=== PATIENT | female | born 1940 ===

== ENCOUNTER 2021-12-23 22:52 | Inpatient (IN) | payer MEDICARE, SELFPAY ==
[2021-12-23 23:11] VITALS: BP 115/72; PULSE 76; RESP 16; TEMP 36.8; O2SAT 94
--- NOTE | 2021-12-23 23:11 | HPE_ITS ---
Date of service: 12/23/21 Time of Service: 22:11 Assessment and Plan Assessment and plan (1) Hip fracture: Status: Acute Assessment and plan: Apparent hip fracture, though I would note that we do not have film at this point, and there are no characteristic physical findings. Have asked for [facility] to send film and as mentioned have already spoken with Ortho. I would note that AF is apparently paroxysmal (by exam), but in any case is not on anticoagulants. Will have NPO in anticipation of OR in AM. History of Present Illness History of Present Illness Chief Complaint: hip fracture Narrative: 81 female had mechanical fall today (tripped in bathroom), landing on left side. No head trauma or LOC. Left hip pain noted. Seen [facility] and left hip fracture noted. No beds and transferred here for further management. [facility] spoke with Dr. Ramos, who also spoke directly with me, and he has accepted case. PMH of note for AF (on ASA, no anticoagulant), HTN.There is also report from [facility] of DM, migraine and anemia but on no treatment for such. Patient does add h/o GERD for which she takes PPI. Patient has received 0.4 Dilaudid and 4 Zofran. Denies pain at this time. Review of Systems Narrative: per HPI PFSH All Active Problems (Updated 12/23/21 @ 23:20 by Derrick Holm MD) Hip fracture (Acute) Social History Smoking risk assessment performed?: No Exam Narrative Exam Narrative: 115/62, 76, 36.8, 16, 94% RA. HEENT atraumatic; neck supple; lungs clear; heart RRR; abdomen soft and NT; extremities w/o edema, pulses 2+/=; no eversion or foreshortening noted LLE; neuro Ox3, lucid, moves all 4s
--- NOTE | 2021-12-23 23:15 | RT.EKG_ITS ---
APPROVED REPORT Exam: Resting ECG Reason for Exam: pre-op Patient Location: I HR:77 bpm ECG Measurements Heart Rate 77 AXIS FL 145 P 5 QRSd 91 QRS 3 QT 386 T 48 QTc 437 Conclusion Sinus rhythm...normal P axis, V-rate 50- 99 Borderline low voltage, extremity leads...all extremity leads <0.6mV
[2021-12-23 23:31] VITALS: BP 115/72; PULSE 76; RESP 16; TEMP 36.8; O2SAT 94
[2021-12-24] VITALS (9 sets, daily range): BP systolic 101–145; BP diastolic 40–99; PULSE 70–103; RESP 14–19; TEMP 36.4–37.5; O2SAT 92–97; BMI 27.4
--- NOTE | 2021-12-24 | DI.CT_ITS ---
Exam(s) CT LOWER EXTREMITY LT WO EXAM: CT LOWER EXTREMITY LT WO CLINICAL HISTORY: evaluate comminution/displacement of L FNF. TECHNIQUE: Imaging Protocol: Axial computed tomography images with coronal and sagittal reformatted images were created and reviewed. COMPARISON: CR XR HIP LT MIN 2V AND PELVIS from 12/23/2021 FINDINGS: Bones: There is an acute subcapital femoral neck fracture. There is mild impaction of the fracture. No significant displacement of the fracture is seen. Minimal comminution is seen with a single oss eous fragment anteriorly. The joint space is well maintained. No cellulitic or osteomyelitic change s are identified. There is no evidence of joint space narrowing or cystic degeneration seen. No lyti c or sclerotic lesions are identified. Soft Tissues: Diverticulosis is seen in the sigmoid colon. No evidence of diverticulitis. There holbrook s appear to be a very small fat containing left inguinal hernia. IMPRESSION: Acute subcapital left femoral neck fracture with mild impaction. There is minimal comminution with a single osseous fragment is seen anteriorly. RADIATION DOSE DELIVERED: 334.88mGy.cm Total DLP 334.88mGy.cm Total DLP DATA REPOSITORY: All CT scans at this facility are submitted to the National Radiology Data Registry (NRDR) Dose Index Registry (DIR) with the [employer] (ACR). RADIATION OPTIMIZATION: All CT scans at this facility use at least one of these dose optimization te chniques: automated exposure control; mA and/or kV adjustment per patient size (includes targeted exa ms where dose is matched to clinical indication); or iterative reconstruction.
[2021-12-24] MEDS: HYDROmorphone 2 MG/ML SYR 0.5 MG IVP ×2 (01:03→06:31)
[2021-12-24] MEDS: Lactated Ringers 1,000 ML 80 ML IV (01:15)
--- NOTE | 2021-12-24 05:36 | OCONE_ITS ---
History of Present Illness History of Present Illness Chief Complaint: Left Hip Pain Narrative: Zac is an 81-year-old who fell yesterday. She reports that she tripped over her foot landing on her right elbow and left side. She had immediate pain in the left hip. She thought she was unable to mobilize was unable to stand up. Therefore, EMS was called and she was taken to [facility]. She was diagnosed with a impacted femoral neck fracture left side. There is no bed availability and therefore I was called for consultation and possible transfer for her left hip. She was admitted to the hospital service overnight where she has been deemed a surgical candidate. She continues have pain the left hip. She has been tolerating pain with oral Tylenol. She denies numbness or tingling. She does report a previous fracture about her left ankle which has recovered well except for some residual weakness which she was about to see physical therapy for. Consults Consult date: 12/23/21 Requesting physician: Derrick Homl Consult Reason Left hip fracture Assessment and Plan Assessment and plan (1) Fracture of femoral neck, left, closed: Status: Acute Assessment and plan: Zac is an 81-year-old female who has a subcapital femoral neck fracture on the left side, [place] 1, which is stable. CT scan reinforces the findings from the x-ray that there is no significant displacement posteriorly and no comminution. There also no significant arthritic findings. Therefore, recomm end percutaneous cannulated screw fixation of the fracture. I did review this with her. This would stabilize the fracture to allow mobilization. There is a chance for malunion or nonunion or avascular necrosis of the femoral head. However, indications were that this should provide excellent results. After discussing this, she elects to proceed. All of her questions were answered. We will proceed this afternoon. She will remain n.p.o. Cefazolin for preoperative antibiotics. Tranexemic acid prior to surgery Review of Systems All systems reviewed & are unremarkable except as noted in HPI and below PFSH All Active Problems (Updated 12/24/21 @ 13:47 by Kel Ramos MD) Fracture of femoral neck, left, closed (Acute) Hip fracture (Acute) Medical History Anemia Atrial fibrillation Diabetes mellitus Hypertension Migraine headache Social History Smoking/Tobacco Use Status: Never Smoking risk assessment performed?: Yes Alcohol Intake: never Substance use type: does not use Do you feel safe at home: Yes Do you feel safe in your relationship?: No Additional Social history: Exam Narrative Exam Narrative: Resting in the hospital bed. No acute distress. Alert and orient x3. Head is normocephalic and atraumatic. Evaluation of the left leg shows no significant deformity. There is some mild pain to palpation about the proximal aspect left thigh. No breaks in the skin. No ecchymosis. No range of motion was attempted given the patient's reported history and the known x-rays. She has active extension and flexion of the great toe. Sensation intact light touch over the deep and superficial peroneal nerve and tibial nerve. Palpable DP PT pulse. Results Last Vital Signs Temp 36.8 C 12/23/21 23:31 Pulse 76 12/23/21 23:31 Resp 16 12/23/21 23:31 BP 115/72 12/23/21 23:31 Pulse Ox 94 12/23/21 23:31 Labs Result diagrams: 12/24/21 06:11 12/24/21 06:11 Imaging Imaging Studies: X-ray of the left hip demonstrates a subcapital femoral neck fracture. There appears to be some very minor lateral translation and some valgus impaction. No significant step-off or angulation on the lateral view. No other suspicious lesions. No significant arthritis. CT scan of the left hip also shows a subcapital femoral neck fracture with no comminution and no significant displacement. There is no significant angulation on the lateral, sagittal view. n no significant arthritic findings. No other suspicious lesions
[2021-12-24 06:20] LABS: HCT 34.8 % (36.0-46.0); HGB 11.6 g/dL (11.2-15.7); MCH 27.4 pg (27.0-33.0); MCHC 33.3 % (32.0-36.0); MCV 82 fL (80-95); MPV 9.8 fL (8.0-11.0); Platelet Count 243 10^3/uL (130-400); RBC 4.23 10^6/uL (3.93-5.22); RDW 13.7 % (11.7-14.6); RDW-SD 40.9 fL; WBC 7.04 10^3/uL (4.4-10.8)
[2021-12-24 06:32] LABS: Anion Gap 7.7 mmol/L (3-11); BUN 16 mg/dL (7-18); CO2 28.3 mmol/L (21.0-32.0); Chloride 105 mmol/L (98-107); Estimated GFR 52.95 (mL/min/1.73m2); Glucose 110 mg/dL (74-106); Prothrombin Time 9.9 sec (9.3-11.0); Sodium 141 mmol/L (136-145)
--- NOTE | 2021-12-24 07:08 | DI.VRAD_ITS ---
PROCEDURE INFORMATION: Exam: CT Left Lower Extremity Without Contrast, Hip Exam date and time: 12/24/2021 6:46 AM Age: 81 years old Clinical indication: Other: Evaluate comminution/displacement of L fnf TECHNIQUE: Imaging protocol: CT of the Left lower extremity without contrast was performed. Exam focused on the hip. Radiation optimization: All CT scans at this facility use at least one of these dose optimization techniques: automated exposure control; mA and/or kV adjustment per patient size (includes targeted exams where dose is matched to clinical indication); or iterative reconstruction. COMPARISON: No relevant prior studies available. FINDINGS: Bones/joints: The bones are diffusely demineralized. There is a mildly impacted, otherwise nondisplaced subcapital fracture of the left femoral neck without appreciable comminution. The left femoral head maintains spherical contour and is well seated. 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 At least a small left hip effusion is suspected. Soft tissues: No acute or suspicious abnormality. Sigmoid diverticulosis is incidentally noted. Small fat-containing left inguinal hernia. IMPRESSION: Left femoral neck fracture as described above. Dictated and Authenticated by: Missy Sylvester MD. Ordering:GLORIA Begum MD
--- NOTE | 2021-12-24 08:05 | ANES.PREOP_ITS ---
General Info Date of Service Date Performed: 12/24/21 Height: 5 ft 2 in Weight: 68.039 kg Body Mass Index (BMI): 27.4 Surgical Procedure: Operation Date: 12/24/21 14:40 Proposed Procedure Side Surgeon p Hip Cannulated Fx Left Kel Ramos MD Meds Allergies and Home Medications Allergies Allergy/AdvReac Type Severity Reaction Status Date / Time Penicillins AdvReac Skin Rash Unverified 12/24/21 08:25 Home Medication Medication Instructions Recorded aspirin 81 mg tablet 81 mg PO DAILY 12/24/21 Current Visit Medications: Current Medications Generic Name Dose Route Start Last Admin Trade Name Freq PRN Reason Stop Dose Admin Dimethicone/Zinc Oxide 0 gm 12/23/21 23:24 Pascual Protect Cream 142 Gm Tube TP PRN PRN Hydromorphone HCl 0.5 mg 12/23/21 23:24 12/24/21 06:31 Hydromorphone 2 Mg/Ml Syr IVP 0.5 mg Q4H PRN PRN Administration Ringer's Solution 1,000 mls @ 80 mls/hr 12/23/21 23:30 12/24/21 01:15 IV 80 mls/hr INFUSION NUSRAT Administration Cefazolin Sodium/Dextrose 2 gm in 50 mls @ 100 mls/hr 12/24/21 05:45 Ancef Duplex IVPB PREOP NUSRAT Tranexamic Acid 1,000 mg/ 60 mls @ 360 mls/hr 12/24/21 07:45 Sodium Chloride IVPB PREOP NUSRAT Melatonin 6 mg 12/24/21 01:23 Melatonin 3 Mg Tab PO HS PRN PRN Ondansetron HCl 4 mg 12/23/21 23:24 Ondansetron 4 Mg/2 Ml Vial IVP Q4H PRN PRN PFSH Active Problems Active Problems: Problem Status Onset Code Hip fracture S72.009A Medical History Medical History (Updated 12/24/21 @ 08:20 by Francisco Nichols) Anemia Atrial fibrillation Diabetes mellitus Hypertension Migraine headache Tobacco Smoking/Tobacco Use Status: Never Alcohol Alcohol Intake: never Substance Use Substance use type: does not use Vital Signs and Lab Results Vital Signs Most Recent Vital Signs in EMR: Most Recent Vital Signs Temp Pulse Resp BP Pulse Ox 37.5 C 75 17 101/60 92 12/24/21 07:28 12/24/21 07:28 12/24/21 07:28 12/24/21 07:28 12/24/21 07:28 Lab Results Result Diagrams: 12/24/21 06:11 12/24/21 06:11 Blood Type / Crossmatch: No Data to Display Complete Blood Count: White Blood Count 7.04 10^3/uL (4.4-10.8) 12/24/21 06:11 Red Blood Count 4.23 10^6/uL (3.93-5.22) 12/24/21 06:11 Hemoglobin 11.6 g/dL (11.2-15.7) 12/24/21 06:11 Hematocrit 34.8 % (36.0-46.0) L 12/24/21 06:11 Platelet Count 243 10^3/uL (130-400) 12/24/21 06:11 Complete Metabolic Panel: Sodium Level 141 mmol/L (136-145) 12/24/21 06:11 Potassium Level 4.0 mmol/L (3.5-5.1) 12/24/21 06:11 Chloride Level 105 mmol/L (98-107) 12/24/21 06:11 Carbon Dioxide Level 28.3 mmol/L (21.0-32.0) 12/24/21 06:11 Blood Urea Nitrogen 16 mg/dL (7-18) 12/24/21 06:11 Creatinine 1.0 mg/dL (0.55-1.02) 12/24/21 06:11 Estimated GFR/1.73 m2 52.95 (mL/min/1.73m2) 12/24/21 06:11 Calcium Level 8.0 mg/dL (8.5-10.1) L 12/24/21 06:11 Glucose Level 110 mg/dL (74-106) H 12/24/21 06:11 Liver Function Panel: No Data to Display Coagulation Panel: INR International Normalized Ratio 1.0 (0.9-1.1) 12/24/21 06:1 1 Prothrombin Time 9.9 sec (9.3-11.0) 12/24/21 06:11 Cardiac Panel: No Data to Display Arterial Blood Gas: No Data to Display Venous Blood Gas: No Data to Display Pancreas Panel: No Data to Display Thyroid Panel: No Data to Display Infectious Disease: No Data to Display Blood Cultures: No Data to Display Toxicology Panel: No Data to Display Anesthesia Assessment and Plan Anesthesia History Personal History: No History of Anesthesia Complications Family History: No Family History of Anesthesia Complications Exercise Tolerance Exercise Tolerance: Metabolic Equivalents>4 Pertinent Negatives Pertinent Negatives: No Symptoms of GERD, No Major Cardiovascular Symptoms or Complaints, No Major Pulmonary Symptoms or Complaints and No History of CVA/TIA Cardiac & Pulmonary Exam Cardiac Exam: Normal S1/S2 Heart Sounds Pulmonary Exam: Clear Bilateral Breath Sounds Implantable Cardiac Device Does patient have a Pacemaker or an ICD?: No Airway Exam Known Difficult Airway: No Mallampati Class: 2 Mouth Opening: Normal (> 3cm) Thyromental Distance: Greater than 3 cm Neck Range of Motion: Full ROM Neck Circumference: Normal Teeth Condition: Normal Dentition (one tooth missing) ASA Classification ASA Score: ASA 2 Emergency Case?: Yes NPO Status NPO Status: NPO Clears >2 hours, Solids >8 hours Anesthesia Plan Resuscitation Status: Full Code Anesthesia Technique: Spinal Anesthesia Airway Planned: Natural Airway Monitors Used: Standard Monitors Preoperative Comments:: 81 female had mechanical fall. PMH of note for AF (on ASA, no anticoagulant), HTN, DM, migraine, anemia, GERD (on PPI)
[2021-12-24] MEDS: ACETAMINOPHEN 1,000 MG/100 ML BTL 400 MG IVPB (08:43)
--- NOTE | 2021-12-24 12:16 | INITIAL_ITS ---
- If Service Date Differs Date of service: 12/24/21 Time of Service: 12:16 Care Management Initial Assess REASON FOR HOSPITALIZATION:: Hip Fracture PAST MEDICAL HISTORY/PAST SURGICAL HISTORY:: All Active Problems. Hip fracture (Acute). Medical History. Anemia, AFib, Diabetes Mellitus, hypertension, migraine headache PREVIOUS FUNCTIONAL STATUS/SOCIAL/FAMILY SUPPORTS:: ALMA was unable to meet with Zac, as she was in the OR most of the day. Per report, she lives in [place], and is a . She has two friends listed as contacts, but no current HIPAA. CURRENT FUNCTIONAL STATUS:: ALMA was unable to meet with Zac, as she was in the OR most of the day. There was no HIPAA, and no family listed on her chart. CM will attempt to meet with her tomorrow to discuss her plan. CM will continue to follow. ADVANCE DIRECTIVES:: None on file. Has patient been provided with info about the portal/API?: No Did the patient sign up for the portal?: No CODE STATUS:: Full Code INSURANCE COVERAGE / FINANCIAL ISSUES:: [facility] MCR replacement CURRENT HOME/COMMUNITY SERVICES/EQUIPMENT:: No known services or equipment. PRIMARY CARE PHYSICIAN:: Unknown POTENTIAL DISCHARGE NEEDS:: Evaluations for further needs, follow up appointments. PATIENT/FAMILY EDUCATION NEEDS:: Review discharge instructions and limitations, discussion of self care needs including ask me three. ANTICIPATED BARRIERS TO DISCHARGE:: None identified. TRANSPORTATION:: to be determined by disposition. PLAN:: Zac went to the OR today. She will work with PT to evaluate her needs post surgically. Her transport will be determined by her disposition. She will follow up with her PCP and discharge plan of care. CM will continue to follow.
[2021-12-24] MEDS: HYDROmorphone 2 MG/ML SYR 1 MG IVP ×2 (13:06→19:45)
[2021-12-24] MEDS: Normal Saline Flush 10 ML SYR (13:07)
--- NOTE | 2021-12-24 13:30 | DI.RAD_ITS ---
Exam(s) XR HIP LT IN OR EXAM: XR HIP LT IN OR CLINICAL HISTORY: LEFT HIP IN OR TECHNIQUE: 2D and realtime digital imaging was performed. CONTRAST MATERIAL: Refer to procedure report. COMPARISON: CR XR HIP LT MIN 2V AND PELVIS from 12/23/2021 FINDINGS: Fluoroscopy was provided for Dr. Ramos during the performance of a pinning of the left femoral fr acture. Please refer to the procedure report for complete details. Ka,r=16.54 mGy IMPRESSION: RADIATION DOSE DELIVERED:
--- NOTE | 2021-12-24 14:04 | W.PM.PROGNOT ---
Date of Service Date of service: 12/24/21 Time of Service: 13:05 Assessment and Plan Assessment and plan (1) Hip fracture: Status: Acute Assessment and plan: Post op day #1. Continue pain medication and PT (2) Fall: Status: Acute Assessment and plan: Discuss fall precatutions (3) DVT prophylaxis: Status: Acute Assessment and plan: Started on enoxaparin 40 mg SQ daily (4) Discharge planning issues: Status: Acute Assessment and plan: Pending orthopedic & PT recommendations; Lives alone; she thinks she will do well at home. Subjective Subjective Patient reports: no new complaints Interval history since last seen: Post op day #1. Reports nausea has resolved. She is eating well. She got up out of bed with PT. States pain is manageable and is 2/10.. Exam Narrative Exam Narrative: HEENT atraumatic; neck supple; lungs clear; heart RRR; abdomen soft and NT; extremities w/o edema, pulses 2+/=; no eversion or shortening noted LLE; neuro Ox3, lucid, moves all 4s, Objective Last Vital Signs Temp 37.5 C 12/24/21 07:28 Pulse 75 12/24/21 07:28 Resp 17 12/24/21 07:28 BP 101/60 12/24/21 07:28 Pulse Ox 92 12/24/21 07:28 Laboratory Results - last 24 hr 12/24/21 12/24/21 12/24/21 06:11 06:11 06:11 WBC 7.04 RBC 4.23 Hgb 11.6 Hct 34.8 L MCV 82 MCH 27.4 MCHC 33.3 RDW 13.7 Plt Count 243 MPV 9.8 PT 9.9 INR 1.0 Sodium 141 Potassium 4.0 Chloride 105 Carbon Dioxide 28.3 Anion Gap 7.7 BUN 16 Creatinine 1.0 Estimated GFR/1.73 m2 52.95 Glucose 110 H Calcium 8.0 L Reviewed Pertinent PMH: Yes
[2021-12-24] MEDS: ceFAZolin 2 GM/50 ML BAG IVPB (14:15)
--- NOTE | 2021-12-24 15:24 | W.ANESPOSTOP ---
Postoperative Evaluation Date, Time and Location Date Performed: 12/24/21 Time Performed: 15:25 Patient Location: PACU Vital Signs Most Recent Imported Vital Signs: Most Recent Vital Signs Temp Pulse Resp BP Pulse Ox 36.4 C L 82 15 120/40 L 95 12/24/21 15:05 12/24/21 15:05 12/24/21 15:05 12/24/21 15:05 12/24/21 15:05 Pain Score Most Recent Pain Score: Most Recent Pain Score Pain Level 0 12/24/21 15:05 Assessment Mental Status: Awake (Alert & Oriented to Patient Baseline) Airway and Respiratory Function: Patent airway with normal (patient baseline) respiratory exam Cardiovascular Function: Hemodynamically Stable Hydration Status: Adequately Hydrated Nausea & Vomiting: No Nausea or Vomiting Pain: Pt. Denies Any Pain Peripheral Nerve Block: Regional nerve block not resolved at time of post operative discharge (Spinal not resolved as is appropriate. Patient cleared to let spinal resolve on the floor. )
[2021-12-24] MEDS: Ondansetron 4 MG/2 ML VIAL IVP ×2 (15:56→22:34)
[2021-12-24] MEDS: Metoprolol CR 50 MG TABCR PO (19:39)
[2021-12-24] MEDS: Docusate Sodium 100 MG CAP PO (19:40)
--- NOTE | 2021-12-24 22:47 | ROE_ITS ---
Date of service: 12/24/21 Time of Service: 14:45 Operative Note Operative Note DATE OF PROCEDURE: 12/24/21 PRE-OP DIAGNOSIS: Left Hip Femoral Neck Fracture POST-OP DIAGNOSIS: same PROCEDURE: Cannulated Screw Fixation of Left Hip Fracture SURGEON: Kel Ramos DESIGN PRINTING MACHINE SET UP OPERATOR: Ursula Higgins ANESTHESIA TYPE: Spinal Refer to Anesthesia Record ESTIMATED BLOOD LOSS: 10 PATHOLOGY: none sent COMPLICATIONS: None Patient was transported to: PACU Patient's condition: stable Implants: 7.3mm cannulatd screws (#3) Indications: Zac is a 81 year old female who presented to the Emergency Department after a fall. X-rays confirmed the diagnosis of a left femoral neck fracture of the proximal femur. I reviewed the possible treatment options and given the fracture of the femur, I recommened operative fixation. I discussed the technical details of the surgery. I reviewed the risks such as bleeding, infection, pain, stiffness, malunion, nonunion, hardware prominence, hardware faiilure, malrotation, avascular necrosis, blood clot. Despite these risks, she agreed to proceed. Findings: There was a fracture of the proximal femur which was stabilized with three cannulated screws. Procedure Description: Zac was greeted in the preoperative area. Consent was previously reviewed and signed. Once in the operating room, anesthesia was administered. The patient was transferred to the fracture table in the supine position. She was positioned onto the perineal post. All bony prominences were well padded. A single dose of TXA, 1 gram, was then administered IV. Prophylactic antibiotics, Cefazolin 2 grams, was given for prophylactic antibiotics. A timeout was performed for safe surgery. The side leg was prepped with Chloraprep. A shower curtain drape was placed. Using fluoroscopy, the trajectory of the screws were identified. Using a percutaneous approach I then placed 1 guidewire from the 7.3 mm cannulated screw system through the skin and onto the lateral proximal femur. This was position inferiorly and posteriorly. Was advanced into the femoral neck. A lateral then used to appropriately position this guidewire in the posterior portion of the femoral neck and head. It was advanced into the femoral head. Repeat AP fluoroscopy confirmed appropriate position. I then continue to place 2 additional guidewires in a superior and posterior position as well as superior anterior position. Utilized the lateral view as well as AP view to guide these screw trajectories. Once these were in appropriate position the length of the screws were measured and the near cortex was opened. The most inferior screw was placed with a washer due to the bone being softer in this region. The 2 more superior screw was replaced without washers. They were tightened by hand with excellent compression superiorly. Inferior screw unfortunate did not have significant compression but was stable and therefore left in place. The wounds were thoroughly irrigated. 0.25% bupivacaine was injected throughout the wounds both deep and superficially. The wounds were closed with a buried subcuticular Monocryl. The wounds were dressed with a Mepilex silver dressing. At the end of the case, all counts were correct. Zac tolerated the procedure well without known complication and was taken to the PACU for recovery. Physical therapy will start post-operatively, weigh-bearing as tolerated with assistive devices. Anticoagulation will start within 12-24 hours. 3 doses of post-operative antibitiocis for prophylaxis will be administered.
[2021-12-24] MEDS: ceFAZolin 1 GM/50 ML BAG IVPB (23:39)
[2021-12-25] MEDS: Lactated Ringers 1,000 ML 80 ML IV ×2 (04:46→18:20)
[2021-12-25 06:30] LABS: Abs Immature Grans 0.03 10^3/uL (0.0-0.06); Absolute Basophil Count 0.02 10^3/uL (0.0-0.2); Absolute Lymphocyte Count 1.37 10^3/uL (1.2-3.4); Absolute Monocyte Count 0.61 10^3/uL (0.1-0.8); Absolute Neutrophil Count 6.95 10^3/uL (1.2-6.7); Basophils % 0.2; HCT 33.6 % (36.0-46.0); HGB 10.9 g/dL (11.2-15.7); Immature Grans % 0.3; Lymphocytes % 15.3; MCH 27.2 pg (27.0-33.0); MCHC 32.4 % (32.0-36.0); MCV 84 fL (80-95); MPV 9.8 fL (8.0-11.0); Monocytes % 6.8; Neutrophils % 77.4; Platelet Count 236 10^3/uL (130-400); RBC 4.01 10^6/uL (3.93-5.22); RDW 13.6 % (11.7-14.6); RDW-SD 41.3 fL; WBC 8.98 10^3/uL (4.4-10.8)
[2021-12-25 06:43] LABS: Anion Gap 9.2 mmol/L (3-11); BUN 12 mg/dL (7-18); CO2 26.8 mmol/L (21.0-32.0); Calcium 8.1 mg/dL (8.5-10.1); Chloride 105 mmol/L (98-107); Estimated GFR 52.95 (mL/min/1.73m2); Glucose 109 mg/dL (74-106); Potassium 4.3 mmol/L (3.5-5.1); Sodium 141 mmol/L (136-145)
[2021-12-25 07:35] VITALS: BP 113/72; PULSE 83; RESP 16; TEMP 37.9; O2SAT 92
[2021-12-25] MEDS: Sertraline 100 MG TAB PO (07:42)
[2021-12-25] MEDS: ceFAZolin 1 GM/50 ML BAG IVPB ×2 (07:42→16:03)
[2021-12-25] MEDS: HYDROmorphone 2 MG/ML SYR 1 MG IVP ×2 (07:42→16:03)
[2021-12-25] MEDS: Metoprolol CR 50 MG TABCR PO ×2 (07:42→20:12)
[2021-12-25] MEDS: Omeprazole 20 MG CAPCR PO (07:42)
[2021-12-25] MEDS: Normal Saline Flush 10 ML SYR ×2 (07:43→16:05)
--- NOTE | 2021-12-25 09:51 | PT.INIE ---
Date of service: 12/25/21 Time of Service: 09:51 PT Notes Visit Reasons: Hip Fracture Physical Therapy Inpatient Initial Evaluation Date: 12/25/2021 Referring Doctor: Kel Ramos MD PT Orders: PT CONSULT: S/p Ortho surgery. S/P screw fixation of left hip frx ? WBAT with assistive devices Precautions: Fall. Standard. WBAT on left LE with AD. Patient Profile/Admitting Diagnosis: Florencio Weiner is an 81-year-old female with left femoral neck fracture sustained from a fall and is status post cannulated screw fixation on postoperative day 1. PMHX: All Active Problems?(Updated 12/23/21 @ 23:20 by Derrick Holm MD) Hip fracture (Acute) Social History/Home Situation: Lives alone in a private home with 12 steps to enter with rails on both sides. Independent with all aspects of ADLs without an assistive device or adaptive equipment. Still drives. Retired high school tutor Equipment Owned/DME: FWW Subjective: Agreeable to PT consult. Reports 2/10 pain in left hip at rest and with movement. Denies headache, chest pain, and dizziness throughout session. Supine in bed. IV in right knee. Pinto catheter in place. Objective: General Observation: IV in right ureter. Pinto catheter in place. Mepilex Ag over surgical incision. Mental Status: Alert and oriented as to person, place, time, and purpose. Able to pay attention, focus, and respond appropriately. Pain: 2/10 in left hip Vital Signs: Within normal limits as closely monitored by nursing staff ROM: Right Upper Extremity: Shoulder Flexion WFL. Shoulder abduction WFL. Elbow flexion WFL. Wrist flexion WFL. Functional opening and closing of hand WFL. Left Upper Extremity: Shoulder Flexion WFL. Shoulder abduction WFL. Elbow flexion WFL. Wrist flexion WFL. Functional opening and closing of hand WFL. Right Lower Extremity: Hip flexion WFL. Hip abduction WFL. Knee flexion WFL. Ankle dorsiflexion WFL. Ankle plantarflexion WFL. Left Lower Extremity: Hip flexion lacks the last 25% of active range of motion. Hip abduction WFL. Knee flexion WFL. Ankle dorsiflexion WFL. Ankle plantarflexion WFL. Strength: Right Upper Extremity: Shoulder flexors 5/5. Shoulder abductors 5/5. Elbow flexors 5/5. Elbow extensors 5/5. Database Software Technician strong. Left Upper Extremity: Shoulder flexors 5/5. Shoulder abductors 5/5. Elbow flexors 5/5. Elbow extensors 5/5. Database Software Technician strong. Right Lower Extremity: Hip flexors 5/5. Hip abductors 5/5. Knee flexors 5/5. Knee extensors 5/5. Ankle dorsiflexors 5/5. Ankle plantarflexors 5/5. Left Lower Extremity: Hip flexors 3-/5. Hip abductors 4-/5. Knee flexors 5/5. Knee extensors 4-/5. Ankle dorsiflexors 5/5. Ankle plantarflexors 5/5. Bed Mobility/Transfers: Supine to sit with standby assist Sit to supine with minimal assist to left LE Sit to stand contact-guard assist Stand to sit standby assist Bed to reclining chair standby assist Reclining chair to bed standby assist Gait: Instructed patient with level surface ambulation of 100 feet requiring contact-guard assist. Richa decreased. Step-to gait pattern. Denies headache, chest pain, and dizziness. Did report fatigue at end of activity. No loss of balance. No shortness of breath. Balance: Static Sitting: Normal Dynamic Sitting: Normal Static Standing: Fair Dynamic Standing: Fair Special Tests: Mobility Limitations Standardized Measure [facility] 6 clicks Basic Mobility Inpatient Short Form: Raw Score: 17 CMS Score: 51% deficit Informed Consent/Education: Patient was instructed in purpose of PT consult and plan of care. Agreeable to proceed with established PT POC to achieve personal goals. Assessment: LE demonstrates functional mobility decline requiring the use of all mobility ADL performance and assistance of 1 for safety. Range of motion limitation in left hip due to pain and postoperative status. Patient presents with clinical signs and symptoms consistent with current/admitting diagnoses that have resulted to mobility limitations, gait instability, generalized weakness, and overall ADL decline as demonstrated by the following impairment level findings: 1. Decreased strength to left hip ajor muscle groups 2. Impaired sitting/standing balance 3. Impaired activity tolerance 4. Limitation of joint range of motion in left hip Impairments are contributing to the following functional limitations: 1. Decline in bed mobility skills 2. Decline in transfer skills 3. Difficulty with ambulation without assistive device and physical assistance 4. Increased completion time for mobility ADL performance 5. Increased risk for falls 6. Difficulty with managing steps alone safely Patient is assessed as a 24008 moderate based on the following: History: 81-year-old female with past medical history as indicated above Examination: Demonstrable impairment in strength, balance, and mobility level with underlying impairments and functional limitations as exhibited above as well as deficit score of 51% utilizin the [facility] Mobility Inpatient Short Form Presentation: Evolving Decision Makin moderate complexity Goals: Goals X1 week 1. Supine-Sit independent 2. Sit-Supine independent 3. Sit-Stand independent 4. Stand-Sit independent with FWW 5. Bed-Chair independent with FWW 6. Chair-Bed independent with FWW 7. Independent gait on level surface with use of FWW for at least 300 feet without report of pain nor dyspnea 8. Independent stair negotiation while holding onto B rails for at least 15 steps without report of pain nor dyspnea 9. Independent with home exercise program 10. Good static and dynamic standing balance/tolerance Plan of Care/Treatment Plan: 1-2x/day, 7 days/week x 1 week. Plan of care has been reviewed with the CLINICAL FIELD SPECIALIST providing the service under Physical Therapy direction. Initiate Physical Therapy intervention for pain management as needed, strengthening, bed mobility, transfers, gait, stairs, balance training, and use of assistive device. DISCHARGE RECOMMENDATIONS: [] Home with no services [] [X] Home with services. Home when medically cleared by hospitalist and orthopedic surgeon. Patient will benefit from home health PT services in order to progress mobility level using least restrictive assistive ambulatory device, assess home safety, identify additional equipment needs, and establish a functional maintenance program that will increase ability of patient to remain at home. [] Home with outpatient PT [] [] SNF for continued rehabilitation [] [] [facility] [] [] SNF versus LTC based on ability to participate and progress [] TREATMENT CODE/TIME: 9716 2 x 20 minutes, 9753 0 x 29 minutes beginning at 9:51 AM. Thank you for the opportunity to participate in the care of this patient. Denisha Espino PT, DPT, CLT [facility] [place], [place]
[2021-12-25] MEDS: Enoxaparin 40 MG/0.4 ML SYR SC (11:01)
--- NOTE | 2021-12-25 13:23 | CMPROGNOTE_ITS ---
- If Service Date Differs Date of service: 12/25/21 Time of Service: 13:23 Care Management Progress Note S/O: Zac was evaluated by PT who are recommending home PT upon discharge; referral faxed to [place] [facility]. CM continues to follow. A: 81 year old female admitted to [facility] 12/23/21 for Hip Fracture P: Anticipate Zac will discharge home with new orders for VNA PT through [place], she has a FWW at home. She will transport via private vehicle with a friend. CM continues to follow.
--- NOTE | 2021-12-25 13:23 | PDOC.CMPRO ---
- If Service Date Differs Date of service: 12/25/21 Time of Service: 13:23 Care Management Progress Note S/O: Zac was evaluated by PT who are recommending home PT upon discharge; referral faxed to [place] [facility]. CM continues to follow. A: 81 year old female admitted to [facility] 12/23/21 for Hip Fracture P: Anticipate Zac will discharge home with new orders for VNA PT through [place], she has a FWW at home. She will transport via private vehicle with a friend. CM continues to follow.
--- NOTE | 2021-12-25 15:02 | PGE_ITS ---
Date of Service Date of service: 12/25/21 Time of Service: 12:15 Assessment and Plan Assessment and plan (1) Fracture of femoral neck, left, closed: Status: Acute Assessment and plan: Zac is an 81-year-old status post cannulated screw fixation of left femoral neck fracture. She is doing well. I am in charge by the progress he is made already physical therapy. I encouraged her to continue to work diligently physical therapy. At this rate she may be able to return home with home health physical therapy. However, long-term study may also be required. We will see as the next few days and fold. Continue with anticoagulation, Aspirin 81 milligrams twice daily is sufficient. Subjective Subjective Interval history since last seen: Zac is post a day #1 status post cannulated screw fixation of a left femoral neck fracture. She does feel better. She still some soreness about the left hip but she was able to mobilize the physical therapy. She is able to move in the bed with much less pain. She denies any numbness or tingling. Her pain has been controlled. Exam Narrative Exam Narrative: Resting in the supine position in the hospital bed. Left lower extremity dressings clean dry and intact. No deformity of the left leg. She is able to tolerate internal and external rotation without pain. Sensation intact light touch over the deep and superficial peroneal nerve and tibial nerve. Intact ankle dorsiflexion, plantarflexion, great toe extension and flexion. Objective Last Vital Signs Temp 37.9 C H 12/25/21 07:35 Pulse 83 12/25/21 07:35 Resp 16 12/25/21 07:35 BP 113/72 12/25/21 07:35 Pulse Ox 92 12/25/21 07:35 Laboratory Results - last 24 hr 12/25/21 12/25/21 06:10 06:10 WBC 8.98 RBC 4.01 Hgb 10.9 L Hct 33.6 L MCV 84 MCH 27.2 MCHC 32.4 D RDW 13.6 Plt Count 236 MPV 9.8 Immature Gran % 0.3 Neutrophils % 77.4 Lymphocytes % 15.3 Monocytes % 6.8 Eosinophils % 0.0 Basophils % 0.2 Nucleated RBC % 0.0 Absolute Neutrophils 6.95 H Absolute Lymphocytes 1.37 Absolute Monocytes 0.61 Absolute Eosinophils 0.00 Absolute Basophils 0.02 Sodium 141 Potassium 4.3 Chloride 105 Carbon Dioxide 26.8 Anion Gap 9.2 BUN 12 Creatinine 1.0 Estimated GFR/1.73 m2 52.95 Glucose 109 H Calcium 8.1 L
--- NOTE | 2021-12-25 15:09 | PT.INTREAT ---
Date of service: 12/25/21 Time of Service: 14:35 PT Notes Visit Reasons: Hip Fracture Inpatient Physical Therapy Treatment Note [facility] Date: 12/25/2021 PRECAUTIONS: WBAT L, Fall, Activity as tolerated SUBJECTIVE: Zac is pleasant and agreeable to participating in PT. She states that it is important to her to get back on her feet and participate in PT so she can attend her grandson's wedding in [place] in two weeks. OBJECTIVE: PAIN: Patient c/o L hip discomfort due to stiffness BED MOBILITY/TRANSFERS Supine-sit: Min A of L LE Sit-supine: Min A of L LE Sit-stand: SBA with verbal cueing for safety Stand-sit: SBA with verbal cueing for safety GAIT Assistive Device: FWW Weight bearing: WBAT L Assist: SBA Distance: 50' x2 Deviation: Slow pacing, seated rest, L hip discomfort, step-to to step-through pattern, antalgic gait THEREX: Patient was instructed in a LE strengthening program, completed in a seated position, to include: ankle pumps, heel raises, LAQ, seated marches and hip abduction. Patient requires assist with hip abduction exercise due to discomfort and weakness. STAIRS: Up/down 3x4 and 2x6 using B rails and a step-to pattern with cueing for sequence and SBA for safety. ASSESSMENT: Patient tolerated the addition of stair training, requiring cueing for sequence and SBA for safety. She also requires cueing for FWW management during sit<>stand transfers. PLAN: Continue with stair training, as patient lives on second floor, as well as gait training and LE strengthening for improved mobility and activity tolerance. TREATMENT CODE/TIME: 32 minutes; 41094, 29129 (14:35)
[2021-12-25 15:32] VITALS: BP 124/70; PULSE 91; RESP 14; TEMP 37.3; O2SAT 93
[2021-12-25 20:11] VITALS: BP 125/69; PULSE 85; RESP 18; TEMP 37.2; O2SAT 92
[2021-12-26] MEDS: Lactated Ringers 1,000 ML 80 ML IV (05:27)
[2021-12-26 07:26] VITALS: BP 139/67; PULSE 85; RESP 20; TEMP 37.1; O2SAT 92
[2021-12-26] MEDS: Omeprazole 20 MG CAPCR PO (07:47)
[2021-12-26] MEDS: Sertraline 100 MG TAB PO (07:48)
[2021-12-26] MEDS: Enoxaparin 40 MG/0.4 ML SYR SC (07:48)
[2021-12-26] MEDS: Metoprolol CR 50 MG TABCR PO ×2 (07:48→20:42)
--- NOTE | 2021-12-26 09:46 | PDOC.CMPRO ---
- If Service Date Differs Date of service: 12/26/21 Time of Service: 09:47 Care Management Progress Note S/O: Zac continues to be closely monitored and treated post surgically-she continues to work with PT, who report her mobility is currently being limited by pain. Referral faxed to [place] for new [facility]NA PT. CM continues to follow. A: 81 year old female admitted to [facility] 12/23/21 for Hip Fracture P: Anticipate Zac will discharge home with new orders for VNA PT through [place], she has a FWW at home. She will follow up with her PCP and Dr. Ramos four weeks post discharge. She will transport via private vehicle with a friend. CM continues to follow.
--- NOTE | 2021-12-26 10:46 | NUR.NOTE ---
Nursing Note: 07: when rounding on pt this am, pt is adament that she be allowed to sleep this morning. pt agreeable to take medications and then go back to bed. pt declines breakfast stating I am more tired than hungry, I didn't sleep all night. pt receives am medications, denies pain t/o, pt ambulates from recliner to bed, shades pulled, pt declined white noise machine, requests that PT be delayed until later in the day. This RN in pt's room when IV pump going off at 1030, pt sleeping soundly in bed, RR even and non labored at this time. continue to monitor.
--- NOTE | 2021-12-26 11:10 | PT.INTREAT ---
Date of service: 12/26/21 Time of Service: 11:10 PT Notes Visit Reasons: Hip Fracture Physical Therapy Inpatient Treatment Note SUBJECTIVE: Pleasant and cooperative. Excited to be going home today or tomorrow depending on when he/she is medically cleared and when her daughter can pick her up. Reported no pain in the L hip throughout session. Amazed at how good she is doing. OBJECTIVE:? PAIN: Denies BED MOBILITY/TRANSFERS? Supine-sit: Modified independent Sit-supine: Modified independent Sit-stand:? Supervision ? Stand-sit: Supervision ? GAIT? Assistive Device: FWW? Weight bearing: WBAT L Assist: SBA? Distance: 300 feet ? Deviation: Step-through heel-toe gait pattern. Richa increasing. No loss of balance. Mild shortness of breath that resolved with rest. Reported fatigue and requested to do stairs in the afternoon. ? ASSESSMENT:? Patient demonstrates increasing independence as well as activity tolerance and confidence in mobility performance using FWW. Provided with brand new FWW to be taken home to reduce fall risk and maximize independence at home. PLAN: Continue with mobility progression as established per POC with HH PT once disharged. TREATMENT CODE/TIME: 58342 x 36 minutes beginning at 11:10 AM.
[2021-12-26] MEDS: Ketorolac 15 MG/ML VIAL IVP ×3 (11:53→22:35)
--- NOTE | 2021-12-26 12:49 | W.PM.DS.N ---
Date of service: 12/26/21 Time of Service: 11:49 DS: Diagnosis Discharge Diagnosis (1) Hip fracture: Status: Acute (2) Fall: Status: Acute (3) DVT prophylaxis: Status: Acute (4) Discharge planning issues: Status: Acute Discharge Plan Disposition Patient Disposition: HOME W/HOME HEALTH SERVICE Condition: Stable Discharge Details Reason For Visit: Hip Fracture Admit Date/Time: 12/23/21 22:52 Admit Provider: Derrick Holm Attending Provider: Derrick Holm Hospital Course Hospital Course: This is an 81 year old female who lives alone, presented to the emergency department via EMS at an O[facility] for evaluation following an mechanical fall. She was experiencing left hip pain and work up showed an impacted femoral neck fracture. They did not have beds and she was transported here for repair. She is medically cleared for her procedure which she underwent on December 24. No post operative complications. Her pain is managed. she is reambulated with physical therapy and is cleared for discharge to home with home health services. She will f/u with orthopedics in 4 weeks or sooner if needed. discharge discussed with DR Peterson. Home Meds and New Rx's Prescriptions: New aspirin 81 mg capsule 81 mg PO BID Qty: 60 0RF Continued eszopiclone 2 mg Tablet 2 mg PO HS PRN PRN metoprolol succinate 50 mg Tablet Extended Release 24 Hr 50 mg PO BID sertraline 100 mg Tablet 100 mg PO DAILY omeprazole 20 mg Capsule,Delayed Release(Dr/Ec) 20 mg PO DAILY Rx Instructions: last p/u 90 day supply August 2021 Held aspirin 81 mg Tablet 81 mg PO DAILY Hold Instructions: Resume on 01/23/22. will be taking 2 times daily for one month, then resume once daily there after Discharge Instructions Instructions: Hip Fracture (ED) Additional Instructions: Continued physical therapy to work on strengthening and gait independence.? Continue with aspirin 81 mg twice daily for DVT prophylaxis for 30 days.? Weight-bear as tolerated with assistive device.? Stand Alone Forms: Nursing Discharge Form Referrals: Alejandra Gordon [NURSE PRACTITIONER] - (Please call Wednesday to make a follow up appointment.) Kel Ramos MD [ [facility] STAFF PHYSICIAN] - (4 weeks) Activity:: Activity as Tolerated Equipment/Supplies:: Walker Diet:: As Tolerated Discharge Orders Discharge Orders: Discharge Order (Routine); Ordered 12/27/21 Ordered By: Kari Cadena Discharge Data Discharge Date/Time-TO BE ENTERED AT DEPARTURE: 12/27/21 14:18 DS: Summary Time Spent with Patient providing and/or coordinating discharge services: Greater than 30 minutes Status at Discharge Functional status at discharge: uses cane/walker Overall status at discharge: patient is progressing back to baseline Mental Status: mental status grossly normal Speech and Movement: speech and movement normal Mood: congruent mood Affect: normal affect Exam Const General: cooperative, healthy appearing, comfortable and no acute distress Nutritional Appearance: average body habitus Orientation: alert, awake and oriented x3 HENMT Head: normal to inspection Mouth: oral mucosae normal Neck Neck: normal visual inspection Chest Chest: normal inspection of the chest Resp Effort & Inspection: normal respiratory effort Cardio Rate: regular rate Rhythm: regular rhythm GI Inspection: normal to inspection Palpation: soft and nontender Skin Rashes: no rashes and other (surgical dressing clean and dry, no surrounding erythema) Neuro General: patient alert, patient awake, patient oriented x3 and no focal motor deficits Extrem General: normal to inspection and no pedal edema Psych Mental Status: mental status grossly normal Speech and Movement: speech and movement normal Mood: congruent mood Affect: normal affect DS: Data Vitals/I&O Vitals and I&O: Vital Signs Temperature 37.1 C 12/26/21 07:26 Temperature Source Tympanic 12/26/21 07:26 Pulse 85 12/26/21 07:26 Pulse Rhythm Regular 12/26/21 08:30 Respiratory Rate 20 12/26/21 07:26 Respiratory Effort 12/26/21 08:30 Respiratory Depth Normal 12/26/21 08:30 Respiratory Pattern Normal 12/26/21 08:30 Blood Pressure 139/67 12/26/21 07:26 Pulse Oximetry 92 12/26/21 07:26 Respiratory End-tidal CO2 36 12/24/21 15:20 Oxygen Delivery Method Room Air 12/26/21 07:26 Oxygen Flow Rate 0 12/26/21 07:26 Pain Level 5 12/26/21 11:53 Intake & Output 12/25/21 12/26/21 12/26/21 23:59 11:59 23:59 Intake Total 1200 / 1550 889.333 / 1422.666 533.333 / 1422.666 Output Total 600 / 1900 1050 / 1050 Balance 600 / -350 -160.667 / 372.666 533.333 / 372.666 Intake: IV 1000 / 1100 889.333 / 1422.666 533.333 / 1422.666 Oral 200 / 450 Output: Urine 600 / 1900 1050 / 1050 Other: Urine Color Pale Yellow Yellow Urine Appearance Clear Clear Urine Odor Normal Comment Plus large amount incontinent in bed. Voiding Methods Bedside Commode PFS All Active Problems (Updated 12/26/21 @ 14:33 by Kari Cadena NP) Atrial fibrillation (Chronic) Hypertension (Chronic) DVT prophylaxis (Acute) Fall (Acute) Discharge planning issues (Acute) Fracture of femoral neck, left, closed (Acute) Hip fracture (Acute) Medical History Anemia Atrial fibrillation Diabetes mellitus Hypertension Migraine headache Social History Smoking/Tobacco Use Status: Never Smoking risk assessment performed?: Yes Alcohol Intake: never Substance use type: does not use Do you feel safe at home: Yes Do you feel safe in your relationship?: No Additional Social history:
--- NOTE | 2021-12-26 12:54 | PDOC.HHF2F ---
Home Health Certification Home Health Certification: 1. Encounter Date and Reason I certify that Zac Harrington was seen by Kari Cadena on 12/27/21 and that I had a [id number] encounter with this patient that meets the physician face to face encounter requirements. 2. Clinical Findings Supporting Skilled Need and Homebound Status I certify that home health services are medically necessary, include either intermittent senior care and/or physical/speech therapy, and that this patient is homebound in that absences from the home require considerable and taxing effort and are infrequent or of short duration, or are attributable to the need to receive medical care. [X] (a) Attached documentation from encounter provides clinical findings supporting skilled need and homebound status (including what assistance patient requires to leave the home). The encounter with the patient was in whole, or in part, for the following medical condition, which is the primary reason for home health care: Hip Fracture Long-Term: routine nursing evaluation and medication oversight and monitoring Physical and Occupational Therapy: routine evaluation and management, home safely evaluation Homebound: unable to safely leave the house unattended d/t decreased strength and endurance 3. Certification and Authentication I certify that I composed the above information based on my clinical judgment relating to this patient's medical condition and, if applicable, clinical findings communicated to me by the NPP or inpatient physician who performed the Home Health Referral. All further orders will be obtained through Alejandra Gordon NP (Community Based Physician - PCP)
--- NOTE | 2021-12-26 14:20 | W.PM.PROGNOT ---
Date of Service Date of service: 12/26/21 Time of Service: 13:15 Assessment and Plan Assessment and plan (1) Fracture of femoral neck, left, closed: Status: Acute Assessment and plan: Zac is postop day #2 status post cannulated screw fixation of her left hip fracture. She has been able to ambulate with minimal assistance. She appears to be progressing well for discharge to home with home health services. I recommend continued physical therapy to work on strengthening and gait independence. She should continue with aspirin 81 mg twice daily for DVT prophylaxis for 30 days. Weight-bear as tolerated with assistive device. Follow-up in [address] Ramos. Subjective Subjective Interval history since last seen: Continued ability to ambulate with physical therapy. Good pain control. No acute issues. Objective Last Vital Signs Temp 37.1 C 12/26/21 07:26 Pulse 85 12/26/21 07:26 Resp 20 12/26/21 07:26 BP 139/67 12/26/21 07:26 Pulse Ox 92 12/26/21 07:26
--- NOTE | 2021-12-26 14:24 | W.PM.PROGNOT ---
Date of Service Date of service: 12/26/21 Time of Service: 13:25 Assessment and Plan Assessment and plan (1) Hip fracture: Status: Acute Assessment and plan: Post op day #2 with no complications, re-ambulated and doing well. Continue routine postoperative care including bowel management, pain medication and PT/OT (2) Fall: Status: Acute Assessment and plan: continue fall precautions (3) Hypertension: Status: Chronic Assessment and plan: blood pressure is controlled continue beta kailyn. (4) DVT prophylaxis: Status: Acute Assessment and plan: Started on enoxaparin 40 mg SQ daily (5) Discharge planning issues: Status: Acute Assessment and plan: plan to discharge to home with home health services tomorrow. discussed with DR Pineda Subjective Subjective Patient reports: no new complaints, feels better, pain is less, tolerating liquids well, tolerating a regular diet, voiding w/o difficulty and afebrile; denies shortness of breath Interval history since last seen: working with physical therapy and progressing Exam Const General: cooperative, healthy appearing, comfortable and no acute distress Nutritional Appearance: average body habitus Orientation: alert, awake and oriented x3 HENMT Head: normal to inspection Mouth: oral mucosae normal Neck Neck: normal visual inspection Chest Chest: normal inspection of the chest Resp Effort & Inspection: normal respiratory effort Cardio Rate: regular rate Rhythm: regular rhythm GI Inspection: normal to inspection Palpation: soft and nontender Skin Rashes: no rashes and other (surgical dressing clean and dry, no surrounding erythema) Neuro General: patient alert, patient awake, patient oriented x3 and no focal motor deficits Extrem General: normal to inspection and no pedal edema Objective Last Vital Signs Temp 37.1 C 12/26/21 07:26 Pulse 85 12/26/21 07:26 Resp 20 12/26/21 07:26 BP 139/67 12/26/21 07:26 Pulse Ox 92 12/26/21 07:26
[2021-12-26 15:07] VITALS: BP 126/75; PULSE 74; RESP 14; TEMP 37.3; O2SAT 95
[2021-12-26] MEDS: Normal Saline Flush 10 ML SYR IVP (16:04)
--- NOTE | 2021-12-26 16:45 | PT.INTREAT ---
PT Notes Visit Reasons: Hip Fracture PRECAUTIONS: WBAT L, Fall, Activity as tolerated SUBJECTIVE: Pt is very motivated and is looking forward to going home tomorrow. pt agrees to participating with therapy.? OBJECTIVE:? PAIN: Patient c/o L hip discomfort due to stiffness BED MOBILITY/TRANSFERS? Supine-sit: Mod independence Sit-supine: Mod independence Sit-stand: SBA ? Stand-sit: SBA ? GAIT? Assistive Device: FWW? Weight bearing: WBAT L Assist: SBA? Distance: 50' x2 ? Deviation: Slow pacing, seated rest break in between distance, L hip discomfort, step-through pattern, antalgic gait ? THEREX: Patient was instructed in a LE strengthening program, completed in a seated position, to include: ankle pumps, heel raises, LAQ, seated marches and hip abduction.? Patient requires assist with hip abduction exercise due to discomfort and weakness. STAIRS: Up/down 6x4 and 4x6 using B rails and a step-to step-through pattern with cueing for sequence and SBA for safety. ASSESSMENT:?pt tolerated activity well and was able to manage return transfer to bed mod independence. PLAN: Continue with mobility progression as established per POC. TREATMENT CODE/TIME: 30minutes; 38463, [id number] (4:10-4:40pm)
[2021-12-26 20:12] VITALS: BP 121/68; PULSE 72; RESP 19; TEMP 37.4; O2SAT 92
[2021-12-26] MEDS: Acetaminophen 325 MG TAB 650 MG PO (20:43)
[2021-12-26] MEDS: Melatonin 3 MG TAB 6 MG PO (22:35)
[2021-12-26 23:24] VITALS: BP 118/60; PULSE 67; RESP 18; TEMP 36.4; O2SAT 94
[2021-12-27] MEDS: Ketorolac 15 MG/ML VIAL IVP ×2 (04:37→10:39)
[2021-12-27] MEDS: Normal Saline Flush 10 ML SYR IVP ×2 (04:38→10:40)
[2021-12-27] MEDS: Enoxaparin 40 MG/0.4 ML SYR SC (10:24)
[2021-12-27] MEDS: Sertraline 100 MG TAB PO (10:24)
[2021-12-27] MEDS: Omeprazole 20 MG CAPCR PO (10:25)
[2021-12-27] MEDS: Metoprolol CR 50 MG TABCR PO (10:25)
[2021-12-27] MEDS: Acetaminophen 325 MG TAB 650 MG PO (10:25)
[2021-12-27 10:29] VITALS: BP 136/67; PULSE 71; RESP 18; TEMP 36.3; O2SAT 97
--- NOTE | 2021-12-27 12:02 | PTTR_ITS ---
Date of service: 12/27/21 Time of Service: 11:30 PT Notes Visit Reasons: Hip Fracture Inpatient Physical Therapy Treatment Note [facility] Date: 12/27/2021 PRECAUTIONS: WBAT on left and standard SUBJECTIVE: Feeling good today. Eager to go home. Is going to have Home Health services. OBJECTIVE: PAIN: Stated no real pain the last couple of days, but was given a pain med due to going home. BED MOBILITY/TRANSFERS? Supine-sit: [place] Sit-supine: [place] Sit-stand:? SBA ? Stand-sit: SBA ? GAIT? Assistive Device: FWW? Weight bearing: WBAT L Assist: SBA? Distance: 100ft and 50ft? Deviation: Slow pacing, step-through pattern ? THEREX: Patient was instructed in a LE strengthening program, completed in a seated position, to include: ankle pumps, heel raises, LAQ and seated marches.?Given HEP and indicated she had good understanding of each exercise when reviewed with her. STAIRS: Up/down 3x4 and 2x6 using B rails and a step-to step-through pattern with cueing for sequence and SBA for safety. ASSESSMENT:?Pt tolerated activity well and was able to manage return transfer to bed with stand by guard. PLAN: To be discharged to home. Daughter is coming to transport to home. Is to get Home Health service. TREATMENT CODE/TIME: 30minutes; [id number] and [id number] (11:30 to 12:00)
--- NOTE | 2021-12-27 14:22 | CMDISCH_ITS ---
- If Service Date Differs Date of service: 12/27/21 Time of Service: 14:22 LACE Index Scoring Tool - Questions: Length of Stay (in days): 4 - 6 Acuity (Admit via E.D.?): No Comorbidities: Diabetes w/o Complication E.D. Visits: 0 - Answers: Total Score: 5 Risk of Readmission: Low Risk Care Management Discharge Reason for Hospitalization: Hip Fracture Discharge Plan: Zac is discharged home with [facility] through [facility]. Zac will follow up with Ortho in 4 weeks and call her PCP office [facility] to make a follow up appointment. Patient/Family Education Needs: Review discharge instructions, limitations, medications and plan to follow up with Ortho and her PCP. ask me three. Services Needed at Discharge: Home Health Care Services ([facility]. Order Faxed. [facility] notified Fabiana at the [facility])
--- NOTE | 2021-12-29 18:00 | INDS_ITS ---
Date of service: 12/29/21 PT Notes Visit Reasons: Hip Fracture Physical Therapy Inpatient Discharge Summary Date: 12/27/2021 Dates of service 12/25/2021 through 12/27/2021 This is a clinical summary of care provided for the duration of dates listed above. No charge was made in the completion of this documentation. Referring Doctor: Kel Ramos MD PT Orders: PT CONSULT: S/p Ortho surgery.? S/P screw fixation of left hip frx ? WBAT with assistive devices Precautions: Fall. Standard.? WBAT on left LE with AD. Patient Profile/Admitting Diagnosis:? Florencio Weiner is an 81-year-old female with left femoral neck fracture sustained from a fall and is status post cannulated screw fixation on postoperative day 1. PMHX: All Active Problems?(Updated 12/23/21 @ 23:20 by Derrick Holm MD) Hip fracture (Acute) Social History/Home Situation: Lives alone in a private home with 12 steps to enter with rails on both sides.? Independent with all aspects of ADLs without an assistive device or adaptive equipment.? Still drives.? Retired higher education administrator Equipment Owned/DME: [facility] Subjective: NT. See most recent WOUND CARE SPECIALIST notes. Objective: General Observation: NT. See most recent WOUND CARE SPECIALIST notes. Mental Status: NT. See most recent WOUND CARE SPECIALIST notes. Pain: NT. See most recent WOUND CARE SPECIALIST notes. Vital Signs: NT. See most recent WOUND CARE SPECIALIST notes. F ROM: Right Upper Extremity: ? Shoulder Flexion WFL. Shoulder abduction WFL. Elbow flexion WFL. Wrist flexion WFL. Functional opening and closing of hand WFL. Left Upper Extremity:? Shoulder Flexion WFL. Shoulder abduction WFL. Elbow flexion WFL. Wrist flexion WFL. Functional opening and closing of hand WFL. Right Lower Extremity: Hip flexion WFL. Hip abduction WFL. Knee flexion WFL. Ankle dorsiflexion WFL. Ankle plantarflexion WFL. Left Lower Extremity: Hip flexion lacks the last 25% of active range of motion.? Hip abduction WFL. Knee flexion WFL. Ankle dorsiflexion WFL. Ankle plantarflexion WFL. Strength: Right Upper Extremity: Shoulder flexors 5/5. Shoulder abductors 5/5. Elbow flexors 5/5. Elbow extensors 5/5. Farm Rancher strong. Left Upper Extremity: Shoulder flexors 5/5. Shoulder abductors 5/5. Elbow flexors 5/5. Elbow extensors 5/5. Farm Rancher strong. Right Lower Extremity: Hip flexors 5/5. Hip abductors 5/5. Knee flexors 5/5. Knee extensors 5/5. Ankle dorsiflexors 5/5. Ankle plantarflexors 5/5. Left Lower Extremity: Hip flexors 3-/5. Hip abductors 4-/5. Knee flexors 5/5. Knee extensors 4-/5. Ankle dorsiflexors 5/5. Ankle plantarflexors 5/5. Bed Mobility/Transfers: Supine to sit independent Sit to supine independent Sit to stand standby assist Stand to sit standby assist Bed to reclining chair standby assist Reclining chair to bed standby assist Gait: Instructed patient with level surface ambulation of 150 feet with close 50 feet requiring standby assist. Richa decreased.? Step-to gait pattern.? Denies headache, chest pain, and dizziness.? Did report fatigue at end of activity.? No loss of balance.? No shortness of breath. Balance: Static Sitting: Normal Dynamic Sitting: Normal Static Standing: Fair Dynamic Standing: Fair Assessment: Zac demonstrates functional mobility decline requiring the use of all mobility ADL performance and assistance of 1 for safety.? Range of motion limitation in left hip due to pain and postoperative status.? Patient presents with clinical signs and symptoms consistent with current/admitting diagnoses that have resulted to mobility limitations, gait instability, generalized weakness, and overall ADL decline as demonstrated by the following impairment level findings: 1.? Decreased strength to left hip ajor muscle groups 2.? Impaired sitting/standing balance 3.? Impaired activity tolerance 4.? Limitation of joint range of motion in left hip Impairments are contributing to the following functional limitations: 1.? Decline in bed mobility skills 2.? Decline in transfer skills 3.? Difficulty with ambulation without assistive device and physical assistance 4.? Increased completion time for mobility ADL performance 5.? Increased risk for falls 6.? Difficulty with managing steps alone safely Goals: Goals X1 week 1. Supine-Sit independent MET 2. Sit-Supine independent MET 3. Sit-Stand independent NOT MET 4. Stand-Sit independent with FWW NOT MET 5. Bed-Chair independent with FWW NOT MET 6. Chair-Bed independent with FWW NOT MET 7. Independent gait on level surface with use of FWW? for at least 300 feet without report of pain nor dyspnea NOT MET 8. Independent stair negotiation while holding onto B rails for at least 15 steps without report of pain nor dyspnea NOT MET 9. Independent with home exercise program NOT MET 10. Good static and dynamic standing balance/tolerance NOT MET DISCHARGE RECOMMENDATIONS: [] ? Home with no services [] [X] ? Home with services.? Home when medically cleared by hospitalist and orthopedic surgeon.? Patient will benefit from home health PT services in order to progress mobility level using least restrictive assistive ambulatory device, assess home safety, identify additional equipment needs, and establish a functional maintenance program that will increase ability of patient to remain at home. [] ? Home with outpatient PT [] [] ? SNF for continued rehabilitation [] [] ? [facility] [] [] ? SNF versus LTC based on ability to participate and progress [] TREATMENT CODE/TIME: NE Thank you for the opportunity to participate in the care of this patient. Denisha Espino PT, DPT, CLT [facility] [place], [place]
== END 2021-12-27 14:18 | disposition home health service (06) | DRG 482 ==
PROVIDERS: Nurse Practitioner Family; Student in an Organized Health Care Education/Training Program; Admitting Provider General Practice; Visit Provider General Practice
PROC: 0QS704Z Reposition Left Upper Femur with Internal Fixation Device, Open Approach (ICD-10-PCS; CPT 27236; principal; 2021-12-24 14:30)
DX: S72.002A Fracture of unspecified part of neck of left femur, initial encounter for closed fracture (principal); W01.0XXA Fall on same level from slipping, tripping and stumbling without subsequent striking against object, initial encounter; E11.9 Type 2 diabetes mellitus without complications; G43.909 Migraine, unspecified, not intractable, without status migrainosus; I10 Essential (primary) hypertension; D64.9 Anemia, unspecified; I48.91 Unspecified atrial fibrillation
CPT/HCPCS: 27236; 36415; 80048; 85027; 96365; 96366; 96372; 96374; 96375; 96376; 97110; 97162; 97530; 99211; 99214; 99223; 99231; 99239; J1650; 73501; 73700; 85025; 85610; 99217; 99219; 99221; 99224; 99233; G0378; J0131; J0690; J1100; J1170; J1885; J2405; J3010